=== PATIENT | male | born 1960 | race Hispanic/Latino ===

== ENCOUNTER → 2020-04-13 | Outpatient (CLI) | payer BC ==
[~2020-04-13] MED LIST: ASPI-1026 PO; ATOR40TA69 PO; LISI-613 PO; PIOG30TA70 PO; SITA1TAB6 PO; UBID50TA3 PO
== END | disposition home or self-care (01) ==
LOC: RAH 13:43
PROVIDERS: ATTEND Internal Medicine Cardiovascular Disease
DX: I08.3 Combined rheumatic disorders of mitral, aortic and tricuspid valves (principal); I10 Essential (primary) hypertension; R06.02 Shortness of breath
CPT/HCPCS: 71046; 93306; 93356

== ENCOUNTER → 2020-04-28 | Outpatient (CLI) | payer BC ==
[~2020-04-28] MED LIST changes: -LISI-613 PO; -PIOG30TA70 PO
== END | disposition home or self-care (01) ==
LOC: OIH 09:39
PROVIDERS: ATTEND Internal Medicine Cardiovascular Disease
DX: R91.8 Other nonspecific abnormal finding of lung field (principal); M47.815 Spondylosis without myelopathy or radiculopathy, thoracolumbar region; R60.9 Edema, unspecified
CPT/HCPCS: 71046

== ENCOUNTER 2020-05-18 14:03 | Emergency (ER) | payer BC | END 2020-05-18 16:04 | disposition home or self-care (01) | LOC: EDH 14:03 | DX: R60.0 Localized edema (principal); E78.00 Pure hypercholesterolemia, unspecified; I10 Essential (primary) hypertension; E11.9 Type 2 diabetes mellitus without complications; Z87.891 Personal history of nicotine dependence | CPT/HCPCS: 93970 ==

== ENCOUNTER 2020-05-28 16:11 | Inpatient (IN) | payer BC ==
[~2020-05-28] VITALS: Ht 170.2 cm; Wt 92.0 kg
[2020-05-28 17:03] LABS: BASOPHILS % (AUTO) 0.5 % (0.0-5.0); EOSINOPHILS % (AUTO) 1.7 % (0.0-8.0); HEMATOCRIT 40.3 % (42-54); LYMPHOCYTES % (AUTO) 11.4 % (21.0-51.0); MEAN CORPUSCULAR HEMOGLOBIN 28.3 pg (27.0-33.0); MEAN CORPUSCULAR HGB CONC 32.5 g/dL (32.0-36.0); NEUTROPHILS % (AUTO) 75.9 % (40.0-77.0); PLATELET COUNT (AUTO) 334 K/uL (130-400); RED BLOOD CELL COUNT(AUTO) 4.63 MIL/uL (4.50-6.20); RED CELL DISTRIBUTION WIDTH 14.4 % (11.0-15.5); WHITE BLOOD COUNT (AUTO) 8.2 K/uL (4.8-10.8)
[2020-05-28 17:13] LABS: CREATININE 0.8 mg/dL (0.5-1.5); POTASSIUM 4.5 mmol/L (3.5-5.1)
[2020-05-28 17:16] LABS: INR 1.07 (0.85-1.15); PARTIAL THROMBOPLASTIN TIME 29.8 SEC (26.3-35.5); PROTHROMBIN TIME 11.5 SEC (9.6-11.6)
[2020-05-28 17:17] LABS: ALBUMIN 3.4 g/dL (3.5-5.0); APPEARANCE,URINE Clear (CLEAR); BILIRUBIN,TOTAL 0.8 mg/dL (0.2-1.0); BILIRUBIN,URINE Negative (NEGATIVE); COLOR,URINE Yellow (YELLOW); GLUCOSE, URINE (UA) Negative (NEGATIVE); KETONES,URINE Negative (NEGATIVE); LEUKOCYTE ESTERASE ,URINE Negative (NEGATIVE); NITRATE,URINE Negative (NEGATIVE); OCCULT BLOOD,URINE Negative (NEGATIVE); PROTEIN,URINE Trace mg/dL (NEGATIVE); TOTAL PROTEIN, SERUM 8.3 g/dL (6.0-8.3)
[2020-05-28 17:30] LABS: BACTERIA,URINE Few /HPF (None Seen); RBC,URINE None Seen /HPF (0-1); SQUAMOUS EPITHELIAL CELL,UR None Seen /HPF (0-2); WBC,URINE 0-1 /HPF (0-1)
[2020-05-28 17:46] LABS: B-TYPE NATRIURETIC PEPTIDE 797 pg/mL (0-100)
[2020-05-28] MEDS ORDERED: FUROSEMIDE 10 MG/ML 2ML VIAL ONE (19:05)
[2020-05-28] MEDS ORDERED: ONDANSETRON HCL 4 MG/2 ML VIAL IV PRN (19:15)
[2020-05-28] MEDS ORDERED: ACETAMINOPHEN 325 MG TAB PO PRN ×2 (19:15)
[2020-05-28] MEDS ORDERED: LACTULOSE 20 GM/30 ML UDCUP PO PRN (19:15)
[2020-05-28] MEDS ORDERED: MORPHINE SULFATE 2 MG/ML 1ML SYG IV PRN (19:15)
[2020-05-28] MEDS ORDERED: HYDRALAZINE HCL 20 MG/ML VIAL IV PRN (19:15)
[2020-05-28] MEDS: INSULIN HUMULIN R 100 UNIT/ML 3ML SQ SCH (21:00)
[2020-05-28] MEDS ORDERED: ENOXAPARIN SODIUM 40 MG/0.4 ML SYRINGE SQ ONE (22:09)
[2020-05-28] MEDS ORDERED: ZOSYN 3.375GM+NS 50ML 50 ML IV ONE (22:09)
[2020-05-29 04:59] LABS: BASOPHILS % (AUTO) 0.6 % (0.0-5.0); EOSINOPHILS % (AUTO) 2.5 % (0.0-8.0); HEMATOCRIT 37.3 % (42-54); MEAN CORPUSCULAR HEMOGLOBIN 27.6 pg (27.0-33.0); MEAN CORPUSCULAR HGB CONC 31.9 g/dL (32.0-36.0); MEAN CORPUSCULAR VOLUME 86.5 fL (79-99); MONOCYTES % (AUTO) 10.1 % (3.0-13.0); NEUTROPHILS % (AUTO) 73.3 % (40.0-77.0); PLATELET COUNT (AUTO) 266 K/uL (130-400); RED BLOOD CELL COUNT(AUTO) 4.31 MIL/uL (4.50-6.20); RED CELL DISTRIBUTION WIDTH 14.1 % (11.0-15.5); WHITE BLOOD COUNT (AUTO) 6.5 K/uL (4.8-10.8)
[2020-05-29 05:17] LABS: CREATININE 0.7 mg/dL (0.5-1.5); POTASSIUM 3.8 mmol/L (3.5-5.1)
[2020-05-29] MEDS: INSULIN HUMULIN R 100 UNIT/ML 3ML SQ SCH ×4 (07:30→21:00)
[2020-05-29] MEDS ORDERED: ENOXAPARIN SODIUM 40 MG/0.4 ML SYRINGE SQ SCH (09:00)
[2020-05-29] MEDS ORDERED: FAMOTIDINE 20MG TAB 20 MG TAB ONE (09:27)
[2020-05-29] MEDS: CARVEDILOL 6.25 MG TABLET PO SCH ×2 (10:15→23:23)
[2020-05-29] MEDS: LOSARTAN 50 MG TABLET PO SCH (10:15)
[2020-05-29] MEDS: AMIODARONE HCL 200 MG TABLET PO SCH (10:15)
[2020-05-29] MEDS ORDERED: LOSARTAN 50 MG TABLET ONE (10:40)
[2020-05-29] MEDS ORDERED: FUROSEMIDE 10 MG/ML 4ML VIAL ONE (10:40)
[2020-05-29] MEDS ORDERED: CARVEDILOL 6.25 MG TABLET PO ONE (10:40)
[2020-05-29] MEDS ORDERED: AMIODARONE HCL 200 MG TABLET PO ONE (10:40)
[2020-05-29] MEDS: ASPIRIN 81MG TAB.CHEW PO SCH (12:00)
[2020-05-29] MEDS ORDERED: PRASUGREL HCL 10 MG TABLET PO SCH (12:00)
[2020-05-29 13:14] LABS: BASOPHILS % (AUTO) 0.6 % (0.0-5.0); EOSINOPHILS % (AUTO) 1.5 % (0.0-8.0); HEMATOCRIT 37.2 % (42-54); LYMPHOCYTES % (AUTO) 11.2 % (21.0-51.0); MEAN CORPUSCULAR HEMOGLOBIN 27.9 pg (27.0-33.0); MEAN CORPUSCULAR HGB CONC 32.3 g/dL (32.0-36.0); MEAN CORPUSCULAR VOLUME 86.5 fL (79-99); NEUTROPHILS % (AUTO) 76.2 % (40.0-77.0); PLATELET COUNT (AUTO) 261 K/uL (130-400); WHITE BLOOD COUNT (AUTO) 6.6 K/uL (4.8-10.8)
[2020-05-29 13:41] LABS: INR 1.14 (0.85-1.15); PARTIAL THROMBOPLASTIN TIME 31.7 SEC (26.3-35.5); PROTHROMBIN TIME 12.3 SEC (9.6-11.6)
[2020-05-29] MEDS ORDERED: ZOSYN 3.375GM+NS 50ML 50 ML IV ONE (13:43)
[2020-05-29] MEDS ORDERED: INSULIN HUMULIN R 100 UNIT/ML 3ML ONE (13:44)
--- NOTE | 2020-05-29 14:00 | NUR ---
SPOKE WITH SPOUSE CLEMENT FOR DC PLANNING Lives with spouse, PREVIOUSLY EMPLOYED AND ACTIVE PRIOR TO Cab[employer] 04/16/20 ON SICK LEAVE SINCE THEN; USES ROLLING WALKER; has needed assistance with ADLS, has had frequent readmission, now arterial occlusion lle. Has shower chair, sleeps in recliner second to shortness of breath; no provider or hh. Spouse frustrated that they have had no help on dc . This CM advised her we would forward info to seferino Brewster at [facility]. Pt turns 60 06/06/20, might be able to help then? CM to follow, DCP home Addendum: 05/29/20 at 1801 by LILI CLINE RN CM Amended: Links added.
[2020-05-29] MEDS ORDERED: HEPARIN 25000 UNITS/250 ML D5W 250 ML IV ONE (14:30)
[2020-05-29] MEDS ORDERED: HEPARIN SODIUM 5000UNIT/ML 1ML VIAL ONE (14:49)
[2020-05-29] MEDS: DOXYCYCLINE HYCLATE 100 MG TABLET PO SCH (17:00)
[2020-05-29 21:08] LABS: INR 1.18 (0.85-1.15); PROTHROMBIN TIME 12.7 SEC (9.6-11.6)
[2020-05-29 21:51] LABS: PARTIAL THROMBOPLASTIN TIME > 120.0 SEC (26.3-35.5)
[2020-05-29 22:37] VITALS: BP 161/100
--- NOTE | 2020-05-29 22:50 | NUR ---
ADMIT PT ADMITTED TO ROOM 414, AAOX3. ADMISSION ASSESSMENT COMPLETED, PLEASE REFER TO CHART. ADMISSION CARE DONE. ADMISSION DATA BASE COMPLETED. HEPARIN DRIP RE-STARTED AT 1600 UNITS/KG/HR. PLACED PT ON TELE MONITOR, WITH NSR REPORTED BY TECH. ORIENTED TO ROOM AND UNIT. IN FOR MORE CARE AND MANAGEMENT. Addendum: 05/30/20 at 0052 by HUGO GORDON RN RN Amended: Links added.
[2020-05-29] MEDS: FAMOTIDINE 20MG TAB 20 MG TAB PO SCH (23:08)
[2020-05-29] MEDS: ZOSYN 3.375GM+NS 50ML 50 ML IV SCH (23:08)
[2020-05-29] MEDS: FUROSEMIDE 10 MG/ML 4ML VIAL IV SCH (23:09)
[2020-05-30] VITALS (7 sets, daily range): BP systolic 117–160; BP diastolic 63–94
--- NOTE | 2020-05-30 02:00 | NUR ---
ROUNDS PT RESTING WELL, FAIRLY ASLEEP. NO DISTRESS NOTED. KEPT RESTED AND COMFORTABLE IN BED. CALL LIGHT WITHIN REACH. WILL MONITOR PT.
[2020-05-30 03:42] LABS: BASOPHILS % (AUTO) 0.8 % (0.0-5.0); EOSINOPHILS % (AUTO) 2.6 % (0.0-8.0); HEMATOCRIT 35.7 % (42-54); LYMPHOCYTES % (AUTO) 17.7 % (21.0-51.0); MEAN CORPUSCULAR HEMOGLOBIN 27.8 pg (27.0-33.0); MEAN CORPUSCULAR HGB CONC 32.8 g/dL (32.0-36.0); MEAN CORPUSCULAR VOLUME 84.8 fL (79-99); MONOCYTES % (AUTO) 10.8 % (3.0-13.0); NEUTROPHILS % (AUTO) 67.8 % (40.0-77.0); PLATELET COUNT (AUTO) 259 K/uL (130-400); RED BLOOD CELL COUNT(AUTO) 4.21 MIL/uL (4.50-6.20); WHITE BLOOD COUNT (AUTO) 6.5 K/uL (4.8-10.8)
--- NOTE | 2020-05-30 04:05 | NUR ---
PTT PT'S PTT=80.5. HEPARIN DRIP DECREASED BY 2 UNITS/KG/HR, 14CC/HR, WITNESSED BY ALEXIS YOUNG. ORDERED REPEAT PTT AT 10AM. KEPT COMFORTABLE IN BED. FOR MORE CARE.
[2020-05-30] MEDS: ZOSYN 3.375GM+NS 50ML 50 ML IV SCH ×3 (04:55→20:17)
[2020-05-30] MEDS: DOXYCYCLINE HYCLATE 100 MG TABLET PO SCH ×2 (04:56→16:43)
[2020-05-30] MEDS: INSULIN HUMULIN R 100 UNIT/ML 3ML SQ SCH ×4 (05:58→20:26)
[2020-05-30] MEDS: HEPARIN 25000 UNITS/250 ML D5W 250 ML IV SCH (06:25)
[2020-05-30] MEDS: FAMOTIDINE 20MG TAB 20 MG TAB PO SCH ×2 (09:34→20:18)
[2020-05-30] MEDS: PRASUGREL HCL 10 MG TABLET PO SCH (09:34)
[2020-05-30] MEDS: AMIODARONE HCL 200 MG TABLET PO SCH (09:34)
[2020-05-30] MEDS: ASPIRIN 81MG TAB.CHEW PO SCH (09:34)
[2020-05-30] MEDS: LOSARTAN 50 MG TABLET PO SCH (09:34)
[2020-05-30] MEDS: CARVEDILOL 6.25 MG TABLET PO SCH ×2 (09:35→20:18)
[2020-05-30] MEDS: FUROSEMIDE 10 MG/ML 4ML VIAL IV SCH ×2 (09:37→20:18)
--- NOTE | 2020-05-30 11:45 | NUR ---
DYSPHAGIA FRANCI COMPLETED. -S/S OF ASPIRATION AT THIS TIME. RECOMMEND REGULAR SOLID, THIN LIQUIDS, PILLS WHOLE WITH LIQUIDS TOLERATED. WALKING DRAGLINE OPERATOR REVIEWED RESULTS AND RECOMMENDATION WITH PATIENT AND NURSE HARPREET. PATIENT EDUCATED ON RISKS AND CONSEQUENCES OF ASPIRATION, AND PATIENT VOICED UNDERSTANDING. ALL QUESTIONS ANSWERED AT THIS TIME. Addendum: 05/30/[address]RIS BARRIGA Amended: Links added.
--- NOTE | 2020-05-30 20:20 | NUR ---
MEDS SHIFT ASSESSMENT DONE, PLEASE REFER TO CHART. DUE MEDS ADMINISTERED, TOLERATED WELL. CALL LIGHT WITHIN REACH. WILL MONITOR PT. Addendum: 05/30/20 at 2247 by HUGO GORDON RN RN Amended: Links added.
--- NOTE | 2020-05-31 01:43 | NUR ---
ROUNDS PT RESTING WELL, FAIRLY ASLEEP. NO DISTRESS NOTED. KEPT UNDISTURBED FOR NOW. WILL MONITOR PT. CALL LIGHT WITHIN REACH.
[2020-05-31] MEDS: HEPARIN 25000 UNITS/250 ML D5W 250 ML IV SCH ×2 (02:09→21:17)
[2020-05-31 03:55] VITALS: BP 131/73
--- NOTE | 2020-05-31 05:06 | NUR ---
PTT RE-CHECK PTT=63.7. MAINTAINED RATE OF HEPARIN DRIP AT 14CC/HR PER PROTOCOL. PTT RE-CHECK Q 24 HOURS. KEPT COMFORTABLE IN BED. FOR MORE CARE.
[2020-05-31] MEDS: ZOSYN 3.375GM+NS 50ML 50 ML IV SCH ×3 (05:09→20:51)
[2020-05-31] MEDS: DOXYCYCLINE HYCLATE 100 MG TABLET PO SCH ×2 (05:09→16:53)
[2020-05-31 05:13] LABS: MEAN CORPUSCULAR HEMOGLOBIN 28.2 pg (27.0-33.0); MEAN CORPUSCULAR HGB CONC 33.4 g/dL (32.0-36.0); MEAN CORPUSCULAR VOLUME 84.3 fL (79-99); RED BLOOD CELL COUNT(AUTO) 4.51 MIL/uL (4.50-6.20); RED CELL DISTRIBUTION WIDTH 14.1 % (11.0-15.5); WHITE BLOOD COUNT (AUTO) 6.5 K/uL (4.8-10.8)
[2020-05-31 05:33] LABS: HEMOGLOBIN A1C 8.3 % (4.0-6.0)
[2020-05-31 05:47] LABS: ALBUMIN 2.9 g/dL (3.5-5.0); BILIRUBIN,TOTAL 0.9 mg/dL (0.2-1.0); CREATININE 0.7 mg/dL (0.5-1.5); POTASSIUM 3.2 mmol/L (3.5-5.1); TOTAL PROTEIN, SERUM 7.3 g/dL (6.0-8.3)
[2020-05-31] MEDS: INSULIN HUMULIN R 100 UNIT/ML 3ML SQ SCH ×4 (06:55→21:00)
[2020-05-31 07:00] VITALS: BP 157/79
[2020-05-31] MEDS ORDERED: LIDOCAINE HCL-MPF 1% 2ML VIAL IV PRN (08:00)
[2020-05-31] MEDS ORDERED: POTASSIUM CHLORIDE 10% ELIXIR 20 MEQ/15 ML UDCUP PO PRN (08:00)
[2020-05-31] MEDS ORDERED: POTASSIUM CHLORIDE 20MEQ/100ML 100 ML IV PRN (08:00)
[2020-05-31] MEDS: ASPIRIN 81MG TAB.CHEW PO SCH (08:42)
[2020-05-31] MEDS: FAMOTIDINE 20MG TAB 20 MG TAB PO SCH ×2 (08:42→20:52)
[2020-05-31] MEDS: CARVEDILOL 6.25 MG TABLET PO SCH ×2 (08:42→20:52)
[2020-05-31] MEDS: PRASUGREL HCL 10 MG TABLET PO SCH (08:42)
[2020-05-31] MEDS: AMIODARONE HCL 200 MG TABLET PO SCH (08:42)
[2020-05-31] MEDS: POTASSIUM CHLORIDE 20 MEQ ERTAB PO PRN ×3 (08:43→20:56)
[2020-05-31] MEDS: LOSARTAN 50 MG TABLET PO SCH (08:43)
[2020-05-31] MEDS: FUROSEMIDE 10 MG/ML 4ML VIAL IV SCH ×2 (09:25→20:53)
[2020-05-31 11:00] VITALS: BP 129/73
[2020-05-31 15:00] VITALS: BP 133/80
[2020-05-31 20:00] VITALS: BP 150/88
[2020-05-31 23:54] VITALS: BP 131/82
[2020-06-01 03:52] VITALS: BP 138/71
[2020-06-01 05:15] LABS: HEMATOCRIT 37.7 % (42-54); MEAN CORPUSCULAR HEMOGLOBIN 27.6 pg (27.0-33.0); MEAN CORPUSCULAR HGB CONC 32.6 g/dL (32.0-36.0); MEAN CORPUSCULAR VOLUME 84.7 fL (79-99); RED BLOOD CELL COUNT(AUTO) 4.45 MIL/uL (4.50-6.20); RED CELL DISTRIBUTION WIDTH 14.2 % (11.0-15.5); WHITE BLOOD COUNT (AUTO) 6.3 K/uL (4.8-10.8)
[2020-06-01] MEDS: ZOSYN 3.375GM+NS 50ML 50 ML IV SCH ×3 (05:17→20:30)
[2020-06-01] MEDS: DOXYCYCLINE HYCLATE 100 MG TABLET PO SCH ×2 (05:17→16:58)
[2020-06-01 05:32] LABS: CREATININE 0.9 mg/dL (0.5-1.5); POTASSIUM 3.9 mmol/L (3.5-5.1)
[2020-06-01] MEDS: INSULIN HUMULIN R 100 UNIT/ML 3ML SQ SCH ×4 (06:03→20:38)
--- NOTE | 2020-06-01 08:00 | NUR ---
AM ASSESSMENT PT AWAKE, ALERT, AND ORIENTED. DENIES CHEST PAIN, DENIES DISCOMFORT TO LEFT LEG. SLIGHTLY EDEMATOUS, SLIGHT REDNESS. PT CONTINUES ON HEPARIN DRIP. TELEMETRY MONITORING, ASSISTANCE WITH ADLS
[2020-06-01] MEDS: AMIODARONE HCL 200 MG TABLET PO SCH (08:31)
[2020-06-01] MEDS: LOSARTAN 50 MG TABLET PO SCH (08:31)
[2020-06-01] MEDS: CARVEDILOL 6.25 MG TABLET PO SCH ×2 (08:31→20:31)
[2020-06-01 08:32] VITALS: BP 155/86
[2020-06-01] MEDS: ASPIRIN 81MG TAB.CHEW PO SCH (08:32)
[2020-06-01] MEDS: PRASUGREL HCL 10 MG TABLET PO SCH (08:32)
[2020-06-01] MEDS: FAMOTIDINE 20MG TAB 20 MG TAB PO SCH ×2 (08:32→20:31)
[2020-06-01 13:06] VITALS: BP 156/83
[2020-06-01] MEDS: FUROSEMIDE 10 MG/ML 4ML VIAL IV SCH (13:09)
[2020-06-01 16:00] VITALS: BP 149/86
--- NOTE | 2020-06-01 16:03 | NUR ---
DSICUSSED POSS DC NEEDS W TERRANCE THOMAS- DSG CHANGES/PACKING , POSS IV ABX- PENDING CULTURES- AND PT?
--- NOTE | 2020-06-01 16:20 | NUR ---
RD NOTIFICATION Pt admitted with Left lower leg cellulitis. Upon visit, Pt reports tolerating Heart Healthy diet order with no report of GI distress, no nutrition concerns. Pt with Obesity Class I. Lasix, KCl, Doxy in place. BG 343. Recommend 60gm CCD RD to continue to monitor. Please notify as additional nutrition concerns arise. Thank you.
[2020-06-01 19:00] VITALS: BP 148/90
[2020-06-01] MEDS ORDERED: FUROSEMIDE 10 MG/ML 2ML VIAL IV SCH (20:00)
[2020-06-01] MEDS ORDERED: ASPI-1443 PO (20:48)
[2020-06-01] MEDS ORDERED: ERGO500014 PO (20:48)
[2020-06-01] MEDS ORDERED: CLIN300C9 PO (20:48)
[2020-06-01] MEDS ORDERED: FURO40TA5 PO (20:48)
[2020-06-01] MEDS ORDERED: DOXE10CA2 PO (20:48)
[2020-06-01] MEDS ORDERED: PANT40TA54 PO (20:48)
[2020-06-01] MEDS ORDERED: CARV6.25 PO (20:48)
[2020-06-01] MEDS ORDERED: ESCI10TA54 PO (20:48)
[2020-06-01] MEDS ORDERED: APIX5TAB PO (20:48)
[2020-06-01] MEDS ORDERED: SITA1TAB6 PO (20:48)
[2020-06-01] MEDS ORDERED: LOSA25TA41 PO (20:48)
--- NOTE | 2020-06-01 20:48 | NUR ---
HOME MEDS Home meds Md lucien to review and reconcile.
[2020-06-02] VITALS: BP 124/73
[2020-06-02 04:00] VITALS: BP 123/72
[2020-06-02 04:43] LABS: BASOPHILS % (AUTO) 0.7 % (0.0-5.0); EOSINOPHILS % (AUTO) 2.8 % (0.0-8.0); HEMATOCRIT 37.4 % (42-54); LYMPHOCYTES % (AUTO) 20.4 % (21.0-51.0); MEAN CORPUSCULAR HEMOGLOBIN 27.9 pg (27.0-33.0); MEAN CORPUSCULAR HGB CONC 32.9 g/dL (32.0-36.0); MEAN CORPUSCULAR VOLUME 84.8 fL (79-99); NEUTROPHILS % (AUTO) 65.6 % (40.0-77.0); PLATELET COUNT (AUTO) 220 K/uL (130-400); RED BLOOD CELL COUNT(AUTO) 4.41 MIL/uL (4.50-6.20); RED CELL DISTRIBUTION WIDTH 14.1 % (11.0-15.5); WHITE BLOOD COUNT (AUTO) 6.1 K/uL (4.8-10.8)
[2020-06-02 04:53] LABS: CREATININE 0.8 mg/dL (0.5-1.5); POTASSIUM 3.5 mmol/L (3.5-5.1)
[2020-06-02] MEDS: ZOSYN 3.375GM+NS 50ML 50 ML IV SCH ×3 (05:21→20:31)
[2020-06-02] MEDS: DOXYCYCLINE HYCLATE 100 MG TABLET PO SCH ×2 (05:21→17:19)
[2020-06-02] MEDS: INSULIN HUMULIN R 100 UNIT/ML 3ML SQ SCH ×5 (05:50→20:36)
[2020-06-02] MEDS: POTASSIUM CHLORIDE 20 MEQ ERTAB PO PRN (05:54)
[2020-06-02 08:00] VITALS: BP 119/66
[2020-06-02] MEDS: LOSARTAN 50 MG TABLET PO SCH (08:50)
[2020-06-02] MEDS: FAMOTIDINE 20MG TAB 20 MG TAB PO SCH ×2 (08:50→20:31)
[2020-06-02] MEDS: AMIODARONE HCL 200 MG TABLET PO SCH (08:51)
[2020-06-02] MEDS: APIXABAN 5 MG TABLET PO SCH ×2 (08:51→20:31)
[2020-06-02] MEDS: FUROSEMIDE 20 MG TABLET PO SCH (08:51)
[2020-06-02] MEDS: ASPIRIN 81MG TAB.CHEW PO SCH (08:51)
[2020-06-02] MEDS: CARVEDILOL 6.25 MG TABLET PO SCH ×2 (08:52→20:31)
[2020-06-02 12:00] VITALS: BP 134/77
[2020-06-02 16:00] VITALS: BP 137/84
[2020-06-02 19:50] VITALS: BP 137/81
--- NOTE | 2020-06-02 20:31 | NUR ---
DRESSING Dressing to rt lower leg fell off.Cleansed wound with Ns,packed gently with wet to dry gauze.Wound appears res,no odor,small amount of serousanguinous drainage.Covered with 4x4,secured with kerlix.Pt jessie well. Addendum: 06/03/20 at 0234 by ZI REDD RN RN *RIGHT lower leg Addendum: 06/03/20 at 0234 by ZI REDD RN RN *LEFT lower leg
[2020-06-02] MEDS ORDERED: INSULIN GLARGINE 100 UNITS/ML 10 ML VIAL SQ SCH (21:00)
[2020-06-03 00:06] VITALS: BP 136/80
[2020-06-03 03:47] VITALS: BP 144/85
[2020-06-03] MEDS: ZOSYN 3.375GM+NS 50ML 50 ML IV SCH ×2 (05:19→13:39)
[2020-06-03] MEDS: DOXYCYCLINE HYCLATE 100 MG TABLET PO SCH ×2 (05:19→17:03)
[2020-06-03] MEDS: INSULIN HUMULIN R 100 UNIT/ML 3ML SQ SCH ×6 (05:23→17:17)
[2020-06-03 05:56] LABS: CRP QUANTITATIVE 10.6 mg/L (0.00-9.0); POTASSIUM 4.2 mmol/L (3.5-5.1)
[2020-06-03 07:54] VITALS: BP 147/94
[2020-06-03] MEDS: FAMOTIDINE 20MG TAB 20 MG TAB PO SCH (08:57)
[2020-06-03] MEDS: ASPIRIN 81MG TAB.CHEW PO SCH (08:57)
[2020-06-03] MEDS: LOSARTAN 50 MG TABLET PO SCH (08:58)
[2020-06-03] MEDS: AMIODARONE HCL 200 MG TABLET PO SCH (08:58)
[2020-06-03] MEDS: FUROSEMIDE 20 MG TABLET PO SCH (08:59)
[2020-06-03] MEDS: APIXABAN 5 MG TABLET PO SCH (08:59)
[2020-06-03] MEDS: CARVEDILOL 6.25 MG TABLET PO SCH (09:02)
--- NOTE | 2020-06-03 11:27 | NUR ---
DR. Elvi SYLVESTER IN ROOM SPEAKING WITH PT. RE:PLAN OF CARE.
[2020-06-03 12:08] VITALS: BP 133/77
--- NOTE | 2020-06-03 13:45 | NUR ---
NO DRESSING ORDERS FROM [facility] COMMUNICATED OT FAMILY . NO CM ORDERS REVC FOR SET UP OF HH FOR DRESSING CHANGES SPOKE TO PATIENT/DAUGHTER AT BEDSIDE, STATES [facility] SAID PATIENT COULD DO OWN DRESSING. WILL ADVISE PRIMARY RN. ANTICIPATING WILL NEED DRESSING CHANGES SUPPLIES, INSTRUCTIONS, AND TIMELY APPOINTMENT WITH PRIMARY MD DR. Prakash. DAUGHTER STATES WILL CALL THIS AFT TO SEE IF CAN GET APPOINTMENT TOMORROW OR MONDAY. CM WILL ASSIST IN SENT INFO TO [facility] IF NEEDED ALSO ADVISED PATIENT AND DTR THAT THIS CM WILL SEND INFO TO [facility]- PATIENT TURNS 60 ON Jun. Addendum: 06/03/20 at 1353 by LILI CLINE RN CM Amended: Links added.
[2020-06-03 16:00] VITALS: BP 148/84
--- NOTE | 2020-06-03 17:55 | NUR ---
DR. Mansi MOLINA IN ROOM SPEAKING WITH PT. RE:DISCHARGE DISPOSITION, QUESTIONS ANSWERED BY DR. MOLINA.
--- NOTE | 2020-06-03 18:40 | NUR ---
HL'S X2 REMOVED, CATHETERS INTACT. DISCHARGE INSTRUCTIONS PROVIDED TO PT. AND FEMALE VISITOR AT BEDSIDE, VERBALIZED MUTUAL UNDERSTANDING. DRSG CHANGE TO LLE PERFORMED; WET-DRY DRSG, SECURED WITH KERLIX.
--- NOTE | 2020-06-03 18:48 | NUR ---
DISCHARGED HOME VIA W/C WITH BELONGINGS ACCOMPANIED BY ALEXIS THOMAS AND FEMALE VISITOR.
== END 2020-06-03 19:13 | disposition home or self-care (01) | DRG 862 ==
LOC: EDH 16:11 → EDHIP 19:02 → 4CH 05-29 22:42
PROVIDERS: ADMIT Family Medicine; ATTEND Family Medicine
PROC: 0Y9J0ZZ Drainage of Left Lower Leg, Open Approach (ICD-10-PCS; principal; 2020-05-30)
DX: T81.49XA Infection following a procedure, other surgical site, initial encounter (principal); I50.23 Acute on chronic systolic (congestive) heart failure; N18.6 End stage renal disease; L03.116 Cellulitis of left lower limb; L02.416 Cutaneous abscess of left lower limb; I13.2 Hypertensive heart and chronic kidney disease with heart failure and with stage 5 chronic kidney disease, or end stage renal disease; L97.929 Non-pressure chronic ulcer of unspecified part of left lower leg with unspecified severity; I48.0 Paroxysmal atrial fibrillation; I87.2 Venous insufficiency (chronic) (peripheral); E78.5 Hyperlipidemia, unspecified; I25.10 Atherosclerotic heart disease of native coronary artery without angina pectoris; E11.22 Type 2 diabetes mellitus with diabetic chronic kidney disease; E11.621 Type 2 diabetes mellitus with foot ulcer; R59.0 Localized enlarged lymph nodes; E11.51 Type 2 diabetes mellitus with diabetic peripheral angiopathy without gangrene; E66.9 Obesity, unspecified; Z79.01 Long term (current) use of anticoagulants; Z95.5 Presence of coronary angioplasty implant and graft; Z95.1 Presence of aortocoronary bypass graft; Z86.73 Personal history of transient ischemic attack (TIA), and cerebral infarction without residual deficits; Z83.3 Family history of diabetes mellitus; Z82.49 Family history of ischemic heart disease and other diseases of the circulatory system
CPT/HCPCS: 36415; 71045; 73700; 80048; 80053; 80061; 81001; 82150; 82550; 82948; 83036; 83605; 83690; 83880; 84132; 84145; 84484; 85025; 85027; 85610; 85730; 86140; 87040; 87070; 87076; 87077; 87186; 92610; 93005; 93926; 93971; G0378; J1644; J1650; J1815; J1940; J2405; J2543

== ENCOUNTER → 2020-07-17 | Outpatient (CLI) | payer BC ==
[~2020-07-17] MED LIST changes: +APIX5TAB PO; -ASPI-1026 PO; +ASPI-1443 PO; +CARV6.25 PO; +CLIN300C10 PO; +DOXE10CA2 PO; +ERGO500014 PO; +ESCI10TA54 PO; +FURO40TA5 PO; +LOSA25TA41 PO; +PANT40TA54 PO
== END | disposition home or self-care (01) ==
LOC: SHCH 11:13
PROVIDERS: ATTEND Internal Medicine Cardiovascular Disease
DX: I25.5 Ischemic cardiomyopathy (principal); I50.22 Chronic systolic (congestive) heart failure
CPT/HCPCS: 93306; 93356

== ENCOUNTER → 2024-11-19 | Outpatient (CLI) | payer OTHER ==
[~2024-11-19] MED LIST changes: +CLIN-141 PO; -CLIN300C10 PO; -ERGO500014 PO; +ERGO500093 PO; +ESCI-8 PO; -ESCI10TA54 PO
== END | disposition home or self-care (01) ==
LOC: SHCH 10:20
PROVIDERS: ATTEND Internal Medicine Cardiovascular Disease
DX: I08.0 Rheumatic disorders of both mitral and aortic valves (principal); I48.0 Paroxysmal atrial fibrillation
CPT/HCPCS: 93306